=== PATIENT | female | born 1955 ===

== ENCOUNTER 2020-11-01 12:15 | Inpatient (IN) | payer OTHER ==
[~2020-11-01] VITALS: Ht 157.5 cm; Wt 62.6 kg
[2020-11-01] MEDS ORDERED: LIPITOR20 MG (17:06)
[2020-11-01] MEDS ORDERED: SYNTHROID75 MCG PO (17:06)
[2020-11-02] MEDS ORDERED: ATORVASTATIN CA10 MG (11:49)
[2020-11-02] MEDS ORDERED: NORFLEX100MG (11:49)
[2020-11-02] MEDS ORDERED: CODE1TAB37 (11:49)
[2020-11-02] MEDS ORDERED: MAXIMUM D3325 MCG (11:49)
== END 2020-11-04 17:51 | disposition home or self-care (01) | DRG 740 ==
LOC: OB/GYN 11-02 09:07 → O/R 11-02 09:07 → SURH 11-02 09:30 → OB/GYN 11-02 15:29
PROVIDERS: ADMIT Specialist; ATTEND Specialist
PROC: 0UT2FZZ Resection of Bilateral Ovaries, Via Natural or Artificial Opening With Percutaneous Endoscopic Assistance (ICD-10-PCS; 2020-11-02)
PROC: 0UT7FZZ Resection of Bilateral Fallopian Tubes, Via Natural or Artificial Opening With Percutaneous Endoscopic Assistance (ICD-10-PCS; 2020-11-02)
PROC: 07BC4ZZ Excision of Pelvis Lymphatic, Percutaneous Endoscopic Approach (ICD-10-PCS; 2020-11-02)
PROC: 0UT9FZZ Resection of Uterus, Via Natural or Artificial Opening With Percutaneous Endoscopic Assistance (ICD-10-PCS; principal; 2020-11-02 09:30)
DX: C54.1 Malignant neoplasm of endometrium (principal); C77.5 Secondary and unspecified malignant neoplasm of intrapelvic lymph nodes; E03.9 Hypothyroidism, unspecified; E78.5 Hyperlipidemia, unspecified